=== PATIENT | female | born 1960 | race Caucasian/White ===

== ENCOUNTER → 2017-01-26 16:53 | Outpatient (CLI) | payer BC | END | disposition home or self-care (01) | LOC: D.MAMMO 01-11 14:30 | DX: Z12.31 Encounter for screening mammogram for malignant neoplasm of breast (principal) ==

== ENCOUNTER → 2019-03-23 12:12 | Outpatient (CLI) | payer BC | END | disposition home or self-care (01) | LOC: D.HCCECHO 12:12 | PROVIDERS: ATTEND Internal Medicine Cardiovascular Disease | DX: I10 Essential (primary) hypertension (principal) ==